=== PATIENT | male | born 1990 | race Caucasian/White ===

== ENCOUNTER 2017-11-26 00:15 | Emergency (ER) | payer MEDICAID ==
[~2017-11-26] VITALS: Ht 182.9 cm; Wt 86.4 kg
[2017-11-26 01:09] LABS: AMPHET/METH SCREEN,URINE NEGATIVE (NEGATIVE); BARBITURATE SCREEN, URINE NEGATIVE (NEGATIVE); BENZODIAZEPINES SCREEN,URINE NEGATIVE (NEGATIVE); CANNABINOID SCREEN,URINE NEGATIVE (NEGATIVE); COCAINE SCREEN,URINE POSITIVE (NEGATIVE); METHADONE SCREEN, URINE NEGATIVE (NEGATIVE); OPIATE SCREEN,URINE NEGATIVE (NEGATIVE)
[2017-11-26 01:16] LABS: PHENCYCLIDINE SCREEN,URINE NEGATIVE (NEGATIVE)
[2017-11-26] MEDS ORDERED: LORazepam 1 MG TABLET PO ONE (01:45)
[2017-11-26 02:50] VITALS: BP 144/89
== END 2017-11-26 02:56 | disposition home or self-care (01) ==
LOC: EMS 00:17
DX: F14.129 Cocaine abuse with intoxication, unspecified (principal); F41.9 Anxiety disorder, unspecified; R00.2 Palpitations; F17.210 Nicotine dependence, cigarettes, uncomplicated; Z71.6 Tobacco abuse counseling
CPT/HCPCS: 93005; 99285; 99406

== ENCOUNTER 2019-11-26 10:18 | Emergency (ER) | payer MEDICAID ==
[~2019-11-26] VITALS: Ht 182.9 cm; Wt 84.1 kg
[2019-11-26] MEDS ORDERED: HYDR-3290 PO (10:24)
[2019-11-26] MEDS ORDERED: IBUPROFEN 600 MG TABLET PO ONE (11:15)
[2019-11-26 12:45] VITALS: BP 145/85
== END 2019-11-26 13:03 | disposition home or self-care (01) ==
LOC: EMS 10:18
DX: S46.911A Strain of unspecified muscle, fascia and tendon at shoulder and upper arm level, right arm, initial encounter (principal); F17.210 Nicotine dependence, cigarettes, uncomplicated; F14.90 Cocaine use, unspecified, uncomplicated; F12.90 Cannabis use, unspecified, uncomplicated; X50.0XXA Overexertion from strenuous movement or load, initial encounter; Y93.89 Activity, other specified; Y92.89 Other specified places as the place of occurrence of the external cause; Y99.8 Other external cause status
CPT/HCPCS: 29240; 99406

== ENCOUNTER 2020-02-19 23:29 | Emergency (ER) | payer MEDICAID ==
[~2020-02-19 23:29] MED LIST: HYDR-3290 PO
== END 2020-02-20 01:00 | disposition left against medical advice (07) ==
LOC: EMS 23:29
DX: Z48.01 Encounter for change or removal of surgical wound dressing (principal); Z53.21 Procedure and treatment not carried out due to patient leaving prior to being seen by health care provider

== ENCOUNTER 2022-11-25 15:51 | Emergency (ER) | payer MEDICAID, OTHER ==
[~2022-11-25] VITALS: Ht 185.4 cm; Wt 81.8 kg
[~2022-11-25 15:51] MED LIST changes: -HYDR-3290 PO; +HYDR-4396 PO
[2022-11-25 16:02] VITALS: BP 123/82
== END 2022-11-25 20:36 | disposition left against medical advice (07) ==
LOC: EMS 15:57
DX: Z53.21 Procedure and treatment not carried out due to patient leaving prior to being seen by health care provider (principal)
CPT/HCPCS: 99281; Z7502